=== PATIENT | male | born 1980 | race Caucasian/White ===

== ENCOUNTER 2023-10-13 16:20 | Emergency (ER) | payer OTHER, SELFPAY ==
[2023-10-13 16:24] VITALS: BP 155/88; PULSE 71; RESP 18; TEMP 36.6; O2SAT 95; BMI 23.1
--- NOTE | 2023-10-13 16:41 | CRLHL7_ITS ---
For Patients: As a result of the Century Cures Act, medical imaging exams and procedure reports are released immediately into your electronic medical record. You may view this report before your referring provider. If you have questions, please contact your health care provider. INDICATION: Cough wheezing TECHNIQUE: Two view chest. FINDINGS: The lungs are clear. The heart, mediastinum and pulmonary vessels are of normal size. There is no evidence of pleural disease. IMPRESSION: Negative chest. Dictated by Laura Reyna MD @ 10/13/2023 5:19:56 PM (Electronically Signed)
[2023-10-13] MEDS: ALBUTEROL INHALER 2 PUFF IH (16:57)
--- NOTE | 2023-10-13 17:44 | ED_ITS ---
HPI - General Adult General Date Seen: 10/13/23 Chief complaint: Cough Stated complaint: weezy, coughing Time Seen by Provider: 10/13/23 16:23 History of Present Illness HPI narrative: This is a pleasant 42-year-old male tobacco user who presents to the ER today f or evaluation of cough, shortness of breath, and wheezing. Symptoms 1st began approximately 7 days ago with what he thought was a mild cold. He had some nasal congestion and cough. Few body aches. A couple days into his illness he also developed sore throat. About 3 days ago he developed worsening cough. He started to feel short of breath especially with exertion like going up and down steps. His family checked him out today and told that he was wheezing and that he should come get checked out. He does not have a fever. No hemoptysis. No vomiting. No diarrhea. No bad headache. He has no known sick exposures. He has no personal history of asthma but he is a smoker. He has been told in the past that he on his lung CT scan he is developing early signs of emphysema. He was told to quit smoking but has not done it yet. No other long-term illnesses. No diabetes. No cancer. No immunosuppression. Related Data Previous Rx's Medication Instructions Recorded doxycycline monohydrate 100 mg 100 mg PO BID 7 days #14 tabs 10/13/23 tablet prednisone 20 mg tablet 40 mg (2 x 20 mg) PO DAILY 5 days 10/13/23 #10 tabs Allergies Allergy/AdvReac Type Severity Reaction Status Date / Time No Known Drug Allergies Allergy Verified 10/13/23 16:27 Exam Narrative: Exam Narrative: Constitutional: Appears well-developed and well-nourished. Alert. Conversant. Non toxic. HENT: Head: Atraumatic. Nose: Nose normal. Tympanic membranes normal Mouth/Throat: Oral mucosa is clear and moist. no trismus. Pharynx normal. Tonsils symmetric. No tonsillar enlargement, erythema, or exudate. Eyes: Conjunctivae normal. EOM normal. Pupils equal, round, and reactive to light. No scleral icterus. Neck: Normal range of motion. Neck supple. No tracheal deviation present. Cardiovascular: Normal rate, regular rhythm. No gallop. No friction rub. No murmur heard. Symmetric radial artery pulses Pulmonary/Chest: Effort normal. No stridor. No respiratory distress. Bilateral upper and lower wheezes. No rales. No rhonchi . No tenderness. Abdominal: Soft. Bowel sounds normal. No distension. No mass. No tenderness. No rebound. No guarding. Musculoskeletal: RUE: Normal range of motion. No tenderness. No deformity LUE: Normal range of motion. No tenderness. No deformity RLE: Normal range of motion. No edema. No tenderness. No deformity LLE: Normal range of motion. No edema. No tenderness. No deformity Lymph: No cervical adenopathy. Neurological: Alert and oriented to person, place, and time. Normal strength. CN II-VII intact. No sensory deficit. GCS eye subscore is 4. GCS verbal subscore is 5. GCS motor subscore is 6. Normal coordination Skin: Skin is warm and dry. No rash noted. No pallor. Normal capillary refill. Psychiatric: Normal mood. Normal affect. Const: Vital Signs, click to edit/add: Vital Signs - 24 hr 10/13/23 16:24 Temperature 98 F Pulse Rate [Pulse Oximeter] 71 Respiratory Rate 18 Blood Pressure [Ri t Upper Arm] 155/88 H Pulse Oximetry 95 Oxygen Delivery Me thod Room Air Course Vital Signs Vital signs: Initial Vital Signs Temperature 98 F 10/13/23 16:24 Temperature Source Temporal Artery Scan 10/13/23 16:24 Pulse Rate 71 10/13/23 16:24 Respiratory Rate 18 10/13/23 16:24 Blood Pressure 155/88 H 10/13/23 16:24 Blood Pressure Mean 110 H 10/13/23 16:24 Blood Pressure Position Supine 10/13/23 16:24 Pulse Oximetry 95 10/13/23 16:24 Oxygen Delivery Method Room Air 10/13/23 16:24 Vital Signs Temperature 98 F 10/13/23 16:24 Pulse Rate 71 10/13/23 16:24 Respiratory Rate 18 10/13/23 16:24 Blood Pressure 155/88 H 10/13/23 16:24 Pulse Oximetry 95 10/13/23 16:24 Oxygen Delivery Method Room Air 10/13/23 16:24 Temperature 98 F 10/13/23 16:24 Pulse Rate 71 10/13/23 16:24 Respiratory Rate 18 10/13/23 16:24 Blood Pressure 155/88 H 10/13/23 16:24 Pulse Oximetry 95 10/13/23 16:24 Oxygen Delivery Method Room Air 10/13/23 16:24 Medications Administered Medications: Discontinued Medications Generic Name Dose Route Start Last Admin Trade Name Rozina PRN Reason Stop Dose Admin Albuterol 2 puff 10/13/23 16:41 10/13/23 16:57 Albuterol Inhaler 10/13/23 16:42 2 puff ONCE ONE Administration Medical Decision Making MDM Narrative Medical decision making narrative: This patient presents for evaluation of []. This is consistent with an upper respiratory tract infection. Viral testing is negative for coronavirus, influenza, RSV. There is no signs at this point of serious bacterial infection such as OM, RPA, epiglottitis, EAR FLAP BINDER, strep pharyngitis, pneumonia, sinusitis, meningitis, bacteremia, serious bacterial infection. Given duration of cough , tobacco use, and worsening and after his initial illness concern was for possible bacterial superinfection on top of his original viral illness. Chest x-ray is obtained is fortunately normal. Patient does have significant wheezing on exam and was treated with albuterol inhaler with improvement here in the ER. Will discharge home with albuterol inhaler and 5 days of prednisone for wheezing, probably viral induced bronchospasm. It is possible the patient is developing early COPD with his history of tobacco use. Counseled smoking cessation. Given tobacco use, duration of cough and worsening, will treat with a course of doxycycline 100 mg b.i.d. for 7 days. There are no gastrointestinal symptoms at this point and no signs of dehydration. Close followup with [facility] physician is indicated. Return to ED for fever > 103, protracted vomiting, confusion, or other worsening. Lab Data Labs: Lab Results 10/13/23 Range/Units 16:45 SARS-CoV-2 (PCR) Negative SARS-CoV-2 (Negative) Influenza Type A (PCR) Negative PCR FLU A (Negative) Influenza Type B (PCR) Negative PCR FLU B (Negative) RSV (PCR) Negative PCR RSV (Negative) Imaging Data Chest x-ray: Attestation: I have reviewed the pertinent imaging results. Radiologist's impression: IMPRESSION: Negative chest. Discharge Plan Discharge Clinical Impression: Cough, Acute bronchospasm Patient Disposition: Home, Self-Care Condition: Stable Instructions: Reactive Airways Disease (ED), Acute Cough (ED) Additional Instructions: Use your albuterol inhaler-2 puffs-every 4 hours if needed for wheezing and coughing. Use the prednisone once daily for 5 days, then stop. Take the antibiotic (doxycycline) twice daily for 7 days, then stop If you are not improved within 3-5 days, please follow-up with your regular doctor or return to the ER. If you have worsening cough, worsening trouble breathing, high fever, or other worsening condition, please come back to the ER right away. Prescriptions: New prednisone 20 mg tablet 40 mg PO DAILY 5 Days Qty: 10 0RF doxycycline monohydrate 100 mg tablet 100 mg PO BID 7 Days Qty: 14 0RF Follow Up/Referrals: Jese Hsu MD [Primary Care Provider] - Stand Alone Forms: [employer] Instructions
[2023-10-13 18:03] LABS: PCR FLU A Negative PCR FLU A (Negative); PCR FLU B Negative PCR FLU B (Negative); PCR RSV Negative PCR RSV (Negative)
[2023-10-13 18:04] LABS: SARS PCR* Negative SARS-CoV-2 (Negative)
== END 2023-10-13 19:11 | disposition home or self-care (01) ==
PROVIDERS: Emergency Provider Emergency Medicine; PCP Family Medicine
DX: R05.9 Cough, unspecified (principal); J98.01 Acute bronchospasm
CPT/HCPCS: 71046; 87631; 99283; 99284; A9270